=== PATIENT | female | born 1955 | race African-American/Black ===

== ENCOUNTER 2017-03-07 09:14 | Emergency (ER) | payer OTHER ==
[2017-03-07 09:25] VITALS: TEMP 98.1; BMI 37.9
[2017-03-07] MEDS ORDERED: KETOROLAC TROMETHAMINE 60 MG/2 ML VIAL IM ONE (10:13)
--- NOTE | 2017-03-07 10:14 | PDOC ---
History of Present Illness - History of Present Illness Initial Comments: 03/07/17 12:23 Patient is a 61 year old female with significant medical hx of HTN who is presenting to the ED with eight days of neck pain, back pain and cold symptoms. The patient complains of right sided neck pain that radiates down her ribs and around to her back; it is aggravated with movement. 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 Patient states that her symptoms relieved with motrin that she was given at work yesterday but returned after several hours. The patient notes that her symptoms began when she developed a cold last week. Her cold symptoms include productive cough with orange sputum production, nasal congestion. She endorses some substernal chest pain that is present with her cough. The patient came to the ED today because she had difficulty working last night due to pain. Denies any fevers, rhinorrhea, nausea, vomiting, diarrhea, and dysuria. Denies sick contacts. <Geneva Wadsworth - Last Filed: 03/07/17 12:22> <Ba Kelly - Last Filed: 03/07/17 12:44> - General Chief Complaint: Shortness of Breath Stated Complaint: UPPER BACK PAIN Time Seen by Provider: 03/07/17 10:04 Past History <Geneva Wadsworth - Last Filed: 03/07/17 12:22> - Past Medical History HTN: Yes - Psycho/Social/Smoking Cessation Hx Anxiety: No Suicidal Ideation: No Smoking History: Never smoked Have you smoked in the past 12 months: No Hx Alcohol Use: No Drug/Substance Use Hx: No Substance Use Type: None <Ba Kelly - Last Filed: 03/07/17 12:44> - Past Medical History Allergies/Adverse Reactions: Allergies Allergy/AdvReac Type Severity Reaction Status Date / Time No Known Allergies Allergy Verified 03/07/17 09:24 Home Medications: Ambulatory Orders NK [No Known Home Medication] 03/07/17 Review of Systems - Review of Systems Comments:: 03/07/17 12:23 CONSTITUTIONAL: No reported: Fever, Diaphoresis, Generalized Weakness, Malaise, Loss of Appetite HEENT: Reported: Nasal Congestion No reported: Rhinorrhea, Throat Pain, Throat Swelling, Difficulty Swallowing, Mouth Swelling, Ear Pain, Eye Pain, Visual Changes CARDIOVASCULAR: Reported: Chest Pain with Cough No reported: Syncope, Palpitations, Irregular Heart Rate, Lightheadedness RESPIRATORY: Reported: Productive Cough No reported: Shortness of Breath, SOB with Exertion, Orthopnea, Wheezing, Stridor, Hemoptysis GASTROINTESTINAL: No reported: Abdominal pain, Abdominal Distension, Nausea, Vomiting, Diarrhea, Constipation, Melena, Hematochezia GENITOURINARY: No reported: Dysuria, Frequency, Urgency, Hesitancy, Flank Pain, Genital Pain MUSCULOSKELETAL: Reported: Neck Pain, Back Pain No reported: Myalgia, Arthralgia SKIN: No reported: Rash, Itching, Pallor HEMEATOLOGIC/IMMUNOLOGIC: No reported: Easy Bleeding, Easy Bruising, Lymphadenopathy, Frequent infections ENDOCRINE: No reported: Unexplained Weight Gain, Unexplained Weight Loss, Heat Intolerance , Cold Intolerance NEUROLOGIC: No reported: Headache, Focal Weakness, Paresthesias, Vertigo, Lightheadedness, Unsteady Gait, Seizure, Mental Status Changes, Incontinence PSYCHIATRIC: No reported: Anxiety, Depression <Geneva Wadsworth - Last Filed: 03/07/17 12:22> *Physical Exam - Vital Signs Last Vital Signs Temp Pulse Resp BP Pulse Ox 98.1 F 66 18 156/78 98 03/07/17 09:18 03/07/17 09:18 03/07/17 09:18 03/07/17 09:18 03/07/17 09:18 - Physical Exam Comments: 03/07/17 12:23 GENERAL: The patient is awake, alert, and fully oriented, Nontoxic - in no acute distress. HEAD: Normocephalic, atraumatic. EYES: extraocular movements intact, sclera anicteric, conjunctiva clear. ENT: Normal voice, Moist mucous membranes. NECK: Normal range of motion, supple LUNGS: Breath sounds equal, clear to auscultation bilaterally. No wheezes, no rhonchi, no rales. HEART: Regular rate and rhythm, without murmur, rub or gallop. ABDOMEN: Soft, nontender, normoactive bowel sounds. No guarding, no rebound.No CVA tenderness MUSCULOSKELETAL: Reproducible trapezius tenderness to the right. EXTREMITIES: Normal range of motion. Trace edema bilaterally. Negative homans sign. No clubbing or cyanosis. No cords, erythema, or tenderness. NEUROLOGICAL: No facial assymetry, Normal speech, PSYCH: Normal mood, normal affect. SKIN: Warm, Dry, normal turgor. <Geneva Wadsworth - Last Filed: 03/07/17 12:22> - Vital Signs Last Vital Signs Temp Pulse Resp BP Pulse Ox 98.1 F 66 18 156/78 98 03/07/17 09:18 03/07/17 09:18 03/07/17 09:18 03/07/17 09:18 03/07/17 09:18 <Ba Kelly - Last Filed: 03/07/17 12:44> Heart Score/ECG Review - ECG Impressions Comment:: 03/07/17 11:05 Twelve-lead EKG was performed and reviewed by me. There is normal sinus rhythm with bradycardia rate of 56 The axis is normal. The intervals are normal. There is normal R wave progression There are no ST or T wave abnormalities. Impression: sinus bradycardia <Ba Kelly - Last Filed: 03/07/17 12:44> ED Treatment Course - RADIOLOGY Radiograph Interpretation: 03/07/17 11:18 Chest X-Ray Impression: Mild cardiomegaly and unfolding of the great vessels. No evidence of heart failure, acute infiltrate or pleural effusion is seen. Clinical correlation is advised. Reported By: Ramo Long MD - Medications Given in the ED: ED Medications Discontinued Medications Generic Name Dose Route Start Last Admin Trade Name Desirae PRN Reason Stop Dose Admin Ketorolac Tromethamine 60 mg 03/07/17 10:13 03/07/17 10:55 Toradol Injection - IM 03/07/17 10:14 60 mg ONCE ONE Administration <Geneva Wadsworth - Last Filed: 03/07/17 12:22> - RADIOLOGY Radiology Studies Ordered: Category Date Time Status CHEST PA & LAT [RAD] Stat Radiology 03/07/17 10:13 Ordered <Ba Kelly - Last Filed: 03/07/17 12:44> Medical Decision Making - Medical Decision Making 03/07/17 10:44 61y F hx of HTN presents with R upper back pain that is worse with movement and palpation, associated with nasal congestion and cough x 8 days, improved with motrin w/o cp, jordan, hemoptysis, increased leg swelling. on exam the pt has reproducible tenderness in the R trapezius, lungs clear. suspect common cold with msk pain PE unlikely basedon constellation of sypmtoms will obtain ekg will ck cxr to r/o pna 03/07/17 12:06 cxr neg for pna will give tylenol an dc the pt to fu with pmd return precautions were discussed I discussed the physical exam findings, ancillary test results and final diagnoses with the patient. I answered all of the patient's questions. The patient was satisfied with the care received and felt comfortable with the discharge plan and treatment plan. The patient will call their primary care physician within 24 hours to arrange follow-up and will return to the Emergency Department with any new, persistent or worsening symptoms. <Ba Kelly - Last Filed: 03/07/17 12:44> *DC/Admit/Observation/Transfer - Attestations Scribe Attestion: 03/07/17 12:23 Documentation prepared by Geneva Wadsworth, acting as senior medical writer for Ba Kelly MD. <Geneva Wadsworth - Last Filed: 03/07/17 12:22> - Discharge Dispostion Admit: No <Ba Kelly - Last Filed: 03/07/17 12:44> Diagnosis at time of Disposition: URI (upper respiratory infection) Qualifiers: URI type: unspecified viral URI Qualified Code(s): J06.9 - Acute upper respiratory infection, unspecified Shoulder pain, left Qualifiers: Chronicity: acute Qualified Code(s): M25.512 - Pain in left shoulder - Discharge Dispostion Disposition: HOME Condition at time of disposition: Improved - Referrals Referrals: Marissa Sheriff MD [Primary Care Provider] - - Patient Instructions Printed Discharge Instructions: DI for Viral Upper Respiratory Infection -- Adult Additional Instructions: Return to the emergency department immediately with ANY new, persistent or worsening symptoms. Take ibuprofen/tylenol as needed for your shoulder/back pain. Use a heating pad on it Make sure you are staying well hydrated. You MUST call and follow up with your doctor in 2-3 days for further evaluation of your symptoms. Results were discussed with you. Please make sure your doctor reviews the results of your emergency evaluation.
[2017-03-07] MEDS ORDERED: KETOROLAC TROMETHAMINE 60 MG/2 ML VIAL ONE (10:49)
[2017-03-07] MEDS ORDERED: ACETAMINOPHEN 325 MG TABLET (FP) PO ONE (12:00)
[2017-03-07] MEDS ORDERED: ACETAMINOPHEN 325 MG TABLET (FP) ONE (12:12)
--- NOTE | 2017-03-07 12:31 | EKG ---
Test Reason : Blood Pressure : / mmHG Vent. Rate : 056 BPM Atrial Rate : 056 BPM P-R Int : 142 ms QRS Dur : 088 ms QT Int : 438 ms P-R-T Axes : 060 016 022 degrees QTc Int : 422 ms SINUS BRADYCARDIA OTHERWISE NORMAL ECG WHEN COMPARED WITH ECG OF 02-AUG-2015 01:31, NO SIGNIFICANT CHANGE WAS FOUND BASELINE ARTIFACT Confirmed by KIA OWEN MD ([id number]) on 03/07/2017 12:31:21 PM Referred By: Confirmed By:KIA OWEN MD
[2017-03-07 13:16] VITALS: BP 165/84; PULSE 57
== END 2017-03-07 13:12 | disposition home or self-care (01) ==
LOC: JER 09:14
PROC: 3E0233Z Introduction of Anti-inflammatory into Muscle, Percutaneous Approach (ICD-10-PCS; principal; 2017-03-07)
DX: J06.9 Acute upper respiratory infection, unspecified (principal); M25.512 Pain in left shoulder; I10 Essential (primary) hypertension
CPT/HCPCS: 71020-TC; 93005; 93010; 99282-25

== ENCOUNTER 2019-11-13 03:05 | Emergency (ER) | payer OTHER ==
[2019-11-13 03:17] VITALS: TEMP 98.2; BMI 37.9
--- NOTE | 2019-11-13 03:20 | PDOC ---
Attending Attestation - Resident Resident Name: YusufYoel - ED Attending Attestation I have performed the following: I have examined & evaluated the patient, The case was reviewed & discussed with the resident, I agree w/resident's findings & plan - HPI HPI: 11/13/19 03:18 see resident hpi - Physicial Exam PE: 11/13/19 03:18 agree with resident exam - Medical Decision Making 11/13/19 03:18 64-year-old female with sudden onset of midepigastric pain, patient told earlier at her job that she was hypertensive with a systolic blood pressure of 190 Last meal was 12 hours ago EKG shows no acute ST segment changes Plan for CTA of the chest abdomen and pelvis to rule out aortic dissection Labs including troponin and LFTs Antacids and reevaluation Due to radiation to the chest will likely keep for observation pending results
--- NOTE | 2019-11-13 03:28 | PDOC ---
History of Present Illness - General Chief Complaint: Chest Pain Stated Complaint: CHEST PAIN Time Seen by Provider: 11/13/19 03:08 - History of Present Illness Initial Comments: 11/13/19 03:18 64f with pmh of htn presents to the ED with sudden onset chest pain while sitting at the computer at work. She never had chest pain like this before. The pain is 8-9/10 starting in the epigastric area and radiating through toward the back. No epigastric burning. Last meal was around 3pm after which she went to sleep before going to work tonight. Pressure much higher than usual. Denies n/v/d headache or sob. Past History - Past Medical History Allergies/Adverse Reactions: Allergies Allergy/AdvReac Type Severity Reaction Status Date / Time No Known Allergies Allergy Verified 03/07/17 09:24 Home Medications: Ambulatory Orders NK [No Known Home Medication] 03/07/17 HTN: Yes - Psycho Social/Smoking Cessation Hx Smoking History: Never smoked Have you smoked in the past 12 months: No Information on smoking cessation initiated: No Hx Alcohol Use: No Drug/Substance Use Hx: No Substance Use Type: None Review of Systems - Review of Systems Able to Perform ROS?: Yes Is the patient limited [place] proficient: No Constitutional: No: Symptoms Reported HEENTM: No: Symptoms Reported Respiratory: No: Symptoms reported Cardiac (ROS): Yes: See HPI ABD/GI: Yes: See HPI : No: Symptoms Reported Musculoskeletal: No: Symptoms Reported Integumentary: No: Symptoms Reported Neurological: No: Symptoms reported All Other Systems: Reviewed and Negative *Physical Exam - Vital Signs Last Vital Signs Temp Pulse Resp BP Pulse Ox 98.2 F 72 22 H 182/74 H 100 11/13/19 03:14 11/13/19 03:14 11/13/19 03:14 11/13/19 03:14 11/13/19 03:14 - Physical Exam General Appearance: Yes: Nourished, Appropriately Dressed. No: Apparent Distress HEENT: positive: EOMI, ROLA, Normal ENT Inspection Respiratory/Chest: positive: Lungs Clear, Normal Breath Sounds. negative: Chest Tender, Respiratory Distress Cardiovascular: positive: Regular Rhythm, Regular Rate, S1, S2 Gastrointestinal/Abdominal: positive: Normal Bowel Sounds, Tender (epigastric), Soft, Protuberent Musculoskeletal: positive: Normal Inspection. negative: CVA Tenderness Extremity: positive: Normal Capillary Refill, Normal Inspection, Normal Range of Motion Neurologic: positive: Fully Oriented, Alert, Normal Mood/Affect ED Treatment Course - LABORATORY CBC & Chemistry Diagram: 11/13/19 03:36 11/13/19 03:36 - ADDITIONAL ORDERS Additional order review: Laboratory Results 11/13/19 11/13/19 11/13/19 03:45 03:36 03:36 Sodium 139 Potassium 3.8 Chloride 104 Carbon Dioxide 28 Anion Gap 6 L BUN 15.1 Creatinine 0.7 Est GFR (CKD-EPI)AfAm 106.87 Est GFR (CKD-EPI)NonAf 92.21 Random Glucose 102 Calcium 9.4 Total Bilirubin 0.3 AST 14 L ALT 21 Alkaline Phosphatase 78 Troponin I < 0.02 Total Protein 8.0 Albumin 3.9 Urine Color Yellow Urine Appearance Clear Urine pH 7.5 D Ur Specific [place] 1.009 L Urine Protein Negative Urine Glucose (UA) Negative Urine Ketones Negative Urine Blood Negative Urine Nitrite Negative Urine Bilirubin Negative Urine Urobilinogen 0.2 Ur Leukocyte Esterase Negative 11/13/19 03:36 RBC 4.56 MCV 90.0 MCHC 33.1 RDW 14.1 MPV 10.3 Neutrophils % 38.4 L D Lymphocytes % 50.5 H D Monocytes % 7.4 Eosinophils % 2.4 Basophils % 1.3 - RADIOLOGY Radiology Studies Ordered: Category Date Time Status ABDOMEN/PELVIS CTA W/WO CONTR [CT] Stat CT Scan 11/13/19 03:32 Taken CHEST CTA [CT] Stat CT Scan 11/13/19 03:32 Taken Medical Decision Making - Medical Decision Making 11/13/19 03:30 64F with epigastric back pain tearing through back as well as high blood pressure. Will rule out ACS and aortic dissection with CTA 11/13/19 06:46 CTA read: IMPRESSION: No acute pathology in the chest, abdomen or pelvis. Possible gallbladder sludge versus milk of calcium without gallbladder inflammation. Ok to dc with outpatient surgical follow up. Discharge - Discharge Information Problems reviewed: Yes Clinical Impression/Diagnosis: Epigastric abdominal pain Condition: Improved Disposition: HOME - Admission No - Follow up/Referral Referrals: Nadira Wilkinson MD [Staff Physician] - Heriberto De La Cruz MD [Staff Physician] - Soren Ma MD [Staff Physician] - Andrea Valdivia MD [Staff Physician] - - Patient Discharge Instructions Patient Printed Discharge Instructions: DI for Epigastric Pain Additional Instructions: Follow up with your primary care physician within the next 3-4 days. Also follow up with general surgery and gastroenterology for possible biliary colic. - Post Discharge Activity
[2019-11-13 03:53] LABS: BASO % 1.3 % (0-2.0); EOS % 2.4 % (0-4.5); HEMATOCRIT 41.1 % (32.4-45.2); HEMOGLOBIN 13.6 GM/dL (10.7-15.3); LYMPH % 50.5 % (8-40); MCH 29.8 pg (25.7-33.7); MCHC 33.1 g/dl (32.0-36.0); MEAN PLT VOLUME 10.3 fl (7.5-11.1); MONO % 7.4 % (3.8-10.2); NEUT % 38.4 % (42.8-82.8); PLATELET COUNT 226 K/MM3 (134-434); RBC 4.56 M/mm3 (3.60-5.2); RDW 14.1 % (11.6-15.6); WHITE BLOOD COUNT 6.4 K/mm3 (4.0-10.0)
[2019-11-13 03:53] LABS: PH,URINE 7.5 (5.0-8.0); URINE APPEARANCE CLEAR; URINE BILIRUBIN NEGATIVE (NEGATIVE); URINE COLOR YELLOW; URINE GLUCOSE (UA) NEGATIVE (NEGATIVE); URINE KETONE NEGATIVE (NEGATIVE); URINE LEUK ESTERASE NEGATIVE (NEGATIVE); URINE NITRITE NEGATIVE (NEGATIVE); URINE PROTEIN NEGATIVE (NEGATIVE); URINE UROBILINOGEN 0.2 mg/dL (0.2-1.0)
[2019-11-13 04:25] LABS: ALBUMIN 3.9 g/dl (3.4-5.0); BILIRUBIN,TOTAL 0.3 mg/dL (0.2-1); BLOOD UREA NITROGEN 15.1 mg/dL (7-18); CALCIUM 9.4 mg/dL (8.5-10.1); CREATININE 0.7 mg/dL (0.55-1.3); POTASSIUM 3.8 mmol/L (3.5-5.1)
[2019-11-13 07:00] VITALS: BP 152/76; PULSE 78
== END 2019-11-13 06:59 | disposition home or self-care (01) ==
LOC: JER 03:05
DX: R10.13 Epigastric pain (principal); I10 Essential (primary) hypertension
CPT/HCPCS: 36415; 71275-TC; 74174-TC; 80053; 81003; 84484; 85025; 87086; 99283-25

== ENCOUNTER 2019-12-06 23:13 | Emergency (ER) | payer OTHER ==
[2019-12-06] MEDS ORDERED: ACETAMINOPHEN/CAFFEINE/BUTALBITAL 1 TAB PO ONE (23:29)
[2019-12-06 23:48] VITALS: TEMP 98.5; BMI 34.8
[2019-12-06] MEDS ORDERED: ACETAMINOPHEN/CAFFEINE/BUTALBITAL 1 TAB ONE (23:51)
[2019-12-07 00:09] LABS: BASO % 0.8 % (0-2.0); EOS % 1.7 % (0-4.5); HEMATOCRIT 39.1 % (32.4-45.2); HEMOGLOBIN 12.8 GM/dL (10.7-15.3); LYMPH % 47.9 % (8-40); MCH 29.4 pg (25.7-33.7); MCHC 32.7 g/dl (32.0-36.0); MEAN CELL VOLUME 89.9 fl (80-96); MEAN PLT VOLUME 9.8 fl (7.5-11.1); MONO % 14.9 % (3.8-10.2); NEUT % 34.7 % (42.8-82.8); PLATELET COUNT 189 K/MM3 (134-434); RBC 4.35 M/mm3 (3.60-5.2); RDW 14.2 % (11.6-15.6); WHITE BLOOD COUNT 3.8 K/mm3 (4.0-10.0)
--- NOTE | 2019-12-07 00:24 | PDOC ---
Documentation entered by Saida Louise SCRIBE, acting as scribe for Kandi Mathias MD. Kandi Mathias MD: This documentation has been prepared by the scribeDani Lincy, SCRIBE, under my direction and personally reviewed by me in its entirety. I confirm that the documentation accurately reflects all work, treatment, procedures, and medical decision making performed by me. History of Present Illness - General Stated Complaint: WHEEZING, CHEST TIGHTNESS Time Seen by Provider: 12/06/19 23:20 History Source: Patient Exam Limitations: No Limitations - History of Present Illness Initial Comments: 12/06/19 23:43 The patient is a 64-year-old female with a past medical history significant for HTN who presents to the emergency department with wheezing and a headache. The patient reports shes been having episodes of wheezing, to the extent, shes unable to sleep secondary to the noise. Denies history of asthma. The patient reports associated symptoms, left-sided headache and chills. Denies fever, chills, ear pain, vision changes, diarrhea, or constipation. Denies known sick contact. Past History - Past Medical History Allergies/Adverse Reactions: Allergies Allergy/AdvReac Type Severity Reaction Status Date / Time No Known Allergies Allergy Verified 12/06/19 23:49 Home Medications: Ambulatory Orders NK [No Known Home Medication] 03/07/17 COPD: No HTN: Yes - Immunization History TDAP Vaccination: Yes Immunization Up to Date: Yes - Psycho Social/Smoking Cessation Hx Smoking History: Never smoked Have you smoked in the past 12 months: No Hx Alcohol Use: No Drug/Substance Use Hx: No Substance Use Type: None Review of Systems - Review of Systems Able to Perform ROS?: Yes Comments:: 12/06/19 23:44 GENERAL/CONSTITUTIONAL: +chills. No fever, No weakness. HEAD, EYES, EARS, NOSE AND THROAT: No change in vision. No ear pain or discharge. No sore throat. CARDIOVASCULAR: No chest pain or shortness of breath. RESPIRATORY: +wheezing. No cough or hemoptysis. GASTROINTESTINAL: No nausea, vomiting, diarrhea or constipation. GENITOURINARY: No dysuria, frequency, or change in urination. MUSCULOSKELETAL: No joint or muscle swelling or pain. No neck or back pain. SKIN: No rash NEUROLOGIC: +headache. No vertigo, loss of consciousness, or change in strength/ sensation. ENDOCRINE: No increased thirst. No abnormal weight change. HEMATOLOGIC/LYMPHATIC: No anemia, easy bleeding, or history of blood clots. ALLERGIC/IMMUNOLOGIC: No hives or skin allergy. *Physical Exam - Vital Signs Last Vital Signs Temp Pulse Resp BP Pulse Ox 98.5 F 68 18 152/82 5 L 12/06/19 23:45 12/06/19 23:45 12/06/19 23:45 12/06/19 23:45 12/06/19 23:45 - Physical Exam 12/06/19 23:47 GENERAL: Awake, alert, and fully oriented, in no acute distress HEAD: +left partial tenderness, No signs of trauma EYES: PERRLA, EOMI, sclera anicteric, conjunctiva clear ENT: TMs normal, Cerumen right ear. nares patent, oropharynx clear without exudates. Moist mucosa NECK: Normal ROM, supple, no lymphadenopathy, JVD, or masses LUNGS: Breath sounds equal, clear to auscultation bilaterally. No wheezes, and no crackles HEART: Regular rate and rhythm, normal S1 and S2, no murmurs, rubs or gallops ABDOMEN: Soft, nontender, normoactive bowel sounds. No guarding, no rebound. No masses EXTREMITIES: Normal range of motion, no edema. No clubbing or cyanosis. No cords, erythema, or tenderness NEUROLOGICAL: Cranial nerves II through XII grossly intact. Normal speech, normal gait SKIN: Warm, Dry, normal turgor, no rashes or lesions noted. Heart Score/ECG Review - ECG Intrepretation Rhythm: Regular Rhythm - [place]: Normal - P and [place] Prominent R with upright T in V1 (true posterior [place]): No Delta Wave(s) Present: No WPW: No - ST and T Early Repolarization: No Non Specific ST-T Wave changes: No Flattened T Waves: No Prolonged Q-T Interval: No - ECG Impressions Normal ECG: Yes Non-specific ST Elevation: No Ischemic Changes: No Bradycardia: No Torsades gardenia Pointes: No WPW: No ED Treatment Course - LABORATORY CBC & Chemistry Diagram: 12/06/19 23:55 12/06/19 23:55 - ADDITIONAL ORDERS Additional order review: 12/06/19 23:55 RBC 4.35 MCV 89.9 MCHC 32.7 RDW 14.2 MPV 9.8 Neutrophils % 34.7 L Lymphocytes % 47.9 H Monocytes % 14.9 H D Eosinophils % 1.7 Basophils % 0.8 - RADIOLOGY Radiology Studies Ordered: Category Date Time Status HEAD CT WITHOUT CONTRAST [CT] Stat CT Scan 12/07/19 00:[address] W/O CONTRAST [CT] Stat CT Scan 12/07/19 00:01 Ordered CHEST PA & LAT [RAD] Stat Radiology 12/07/19 00:20 Ordered - Medications Given in the ED: ED Medications Discontinued Medications Generic Name Dose Route Start Last Admin Trade Name Desirae PRN Reason Stop Dose Admin Acetaminophen/Butalbital/Caffeine 2 tablet 12/06/19 23:29 12/06/19 23:58 Fioricet - PO 12/06/19 23:30 2 tablet ONCE ONE Administration Medical Decision Making - Medical Decision Making 12/07/19 01:51 Patient Name: BETTY LANDIN THIS IS A PRELIMINARY REPORT FROM [facility] DATE OF SERVICE: 2019-12-07 00:12:06 IMAGES: [id number] EXAM: CT Sinus without IV contrast HISTORY: 64-year-old female, evaluate for sinusitis COMPARISON: No available comparison. TECHNIQUE: Axial images obtained through the sinuses. Sagittal and coronal reformatting was performed. Radiation Dose Reduction: This CT exam was performed using one or more of the following dose reduction techniques: automated exposure control, adjustment of the mA and/or kV according to patient size, use of iterative reconstruction technique. Radiation Dose: Based on a 16 cm phantom, the estimated radiation dose CTDIvol mGy for each series in this exam is 32.2. The estimated cumulative dose (DLP mGy-cm) is 620.1. FINDINGS: Nasopharynx: Unremarkable. Oropharynx: Unremarkable. Prevertebral soft tissues: Normal contour and thickness. Nasal Fossa: Unremarkable. No septal perforation or deviation. No wilbert bullosa or paradoxical turbinates are identified. Frontal Sinuses: Unremarkable. Frontal recesses are patent. No anomolous frontal air cells. Ethmoid Sinuses: Unremarkable. Fovea ethmoidalis and lamina papyracea are symmetric and intact. Maxillary Sinuses: Unremarkable. Osteomeatal complex is patent bilaterally. Sphenoid Sinuses: Unremarkable. Spenoethmoidal recess are patent. Orbits: Unremarkable. Visualized skull base: Unremarkable. Lymphadenopathy: None. IMPRESSION: Unremarkable CT of the paranasal sinuses. THIS DOCUMENT HAS BEEN ELECTRONICALLY SIGNED 12/07/19 01:52 Patient Name: BETTY LANDIN THIS IS A PRELIMINARY REPORT FROM [facility] DATE OF SERVICE: 2019-12-07 00:10:33 IMAGES: [id number] EXAM: CT HEAD WITHOUT CONTRAST HISTORY: 64-year-old female, headache, left-sided shunt, sinus pathology COMPARISON: No available comparison exams. TECHNIQUE: Axial non-contrast images of the head obtained from the skull base to the vertex. FINDINGS: Parenchyma: No acute intracranial hemorrhage or mass effect. No hypodensity. Extra-axial collection: No extra-axial fluid collection or hemorrhage. Ventricles and cisterns: Normal and symmetric in size and shape. No SAH. Paranasal sinuses: Visualized portions are unremarkable. Mastoid air cells: Unremarkable. Orbits: Visualized portions are unremarkable. Calvarium: No acute fracture. IMPRESSION: No evidence of acute intracranial abnormality. 12/07/19 01:52 Pt is feeling better with fioricet; labs normal; Pt will be given a dose of diovan tonight. She will follow with PMD and she will bulk picker her meds at the pharmacy tomorrow. Stable for d/c home Discharge - Discharge Information Problems reviewed: Yes Clinical Impression/Diagnosis: Headache, Wheezing, HTN (hypertension) Condition: Improved Disposition: HOME - Follow up/Referral Referrals: Dakotah Hargrove MD [Primary Care Provider] - - Patient Discharge Instructions - Post Discharge Activity Work/Back to School Note: Back to Work
[2019-12-07 00:36] LABS: ALBUMIN 3.4 g/dl (3.4-5.0); BILIRUBIN,TOTAL 0.2 mg/dL (0.2-1); BLOOD UREA NITROGEN 14.5 mg/dL (7-18); CREATININE 0.8 mg/dL (0.55-1.3); POTASSIUM 4.5 mmol/L (3.5-5.1); TOT PROT 7.3 g/dl (6.4-8.2)
[2019-12-07] MEDS ORDERED: VALSARTAN 40 MG TABLET (FP) PO ONE (01:44)
[2019-12-07 03:03] VITALS: BP 156/84; PULSE 62
--- NOTE | 2019-12-09 12:51 | EKG ---
Test Reason : Blood Pressure : / mmHG Vent. Rate : 065 BPM Atrial Rate : 065 BPM P-R Int : 136 ms QRS Dur : 084 ms QT Int : 406 ms P-R-T Axes : 062 015 025 degrees QTc Int : 422 ms NORMAL SINUS RHYTHM WITH SINUS ARRHYTHMIA NORMAL ECG WHEN COMPARED WITH ECG OF 07-MAR-2017 10:52, NO SIGNIFICANT CHANGE WAS FOUND Confirmed by DINESH ISAAC MD ([id number]) on 12/09/2019 12:50:54 PM Referred By: Confirmed By:DINESH ISAAC MD
== END 2019-12-07 02:10 | disposition home or self-care (01) ==
LOC: JER 23:13
DX: R06.2 Wheezing (principal); R51 Headache; I10 Essential (primary) hypertension
CPT/HCPCS: 36415; 70450-TC; 70486-TC; 71046-TC-FY; 80053; 85025; 93005; 93010; 99283-25

== ENCOUNTER 2022-10-10 05:34 | Day surgery (SDC) | payer OTHER ==
[2022-10-10 10:05] VITALS: BMI 35.4
[2022-10-10] MEDS ORDERED: ONDANSETRON 4 MG/2 ML VIAL IVPUSH PRN ×2 (11:39→11:40)
[2022-10-10] MEDS ORDERED: ACETAMINOPHEN 325 MG TABLET (FP) PO PRN (11:39)
[2022-10-10] MEDS ORDERED: IBUPROFEN 400 MG TABLET (FP) PO PRN (11:39)
[2022-10-10] MEDS ORDERED: PROMETHAZINE HCL 25 MG/1 ML VIAL IVPUSH PRN (11:40)
[2022-10-10] MEDS ORDERED: oxyCODONE HCL 5 MG TABLET PO PRN (11:40)
[2022-10-10] MEDS ORDERED: LACTATED RINGERS SOLUTION 1,000 ML IV SCH (11:45)
[2022-10-10] MEDS ORDERED: FENTANYL CITRATE/PF 50 MCG/ML VIAL ONE ×2 (12:02→12:27)
[2022-10-10] MEDS ORDERED: PROPOFOL 20 ML ONE (12:02)
[2022-10-10] MEDS ORDERED: MIDAZOLAM HCL 2 MG/2 ML SINGLE DOSE VIAL ONE (12:02)
[2022-10-10] MEDS ORDERED: LIDOCAINE HCL/PF 2% SDV 5ML VIAL ONE (12:03)
[2022-10-10] MEDS ORDERED: GLYCOPYRROLATE 0.2 MG/1 ML VIAL ONE (12:03)
[2022-10-10] MEDS ORDERED: DEXAMETHASONE SOD PHOSPHATE 4 MG/1 ML VIAL ONE (12:26)
[2022-10-10] MEDS ORDERED: METOPROLOL TARTRATE 5 MG/5 ML VIAL ONE (12:26)
[2022-10-10] MEDS ORDERED: ONDANSETRON 4 MG/2 ML VIAL ONE (12:26)
[2022-10-10] MEDS ORDERED: KETOROLAC TROMETHAMINE 30 MG/1 ML VIAL ONE (12:28)
[2022-10-10 14:36] VITALS: RESP 18; TEMP 97.8
[2022-10-10 15:23] VITALS: BP 128/85; PULSE 54
== END 2022-10-10 15:05 | disposition home or self-care (01) ==
LOC: JASU-SURG 05:34
PROVIDERS: ATTEND Obstetrics & Gynecology
PROC: 0UB98ZX Excision of Uterus, Via Natural or Artificial Opening Endoscopic, Diagnostic (ICD-10-PCS; principal; 2022-10-10 11:30)
PROC: 0UDB7ZX Extraction of Endometrium, Via Natural or Artificial Opening, Diagnostic (ICD-10-PCS; 2022-10-10 11:30)
DX: N84.0 Polyp of corpus uteri (principal)
CPT/HCPCS: 86850; 86900; 86901; 88305-TC; 94760

== ENCOUNTER 2024-03-27 12:06 | Emergency (ER) | payer OTHER ==
[2024-03-27 12:19] VITALS: BP 153/67; PULSE 98; RESP 16; TEMP 98; BMI 40.3
[2024-03-27] MEDS: SODIUM CHLORIDE 0.9% 500 ML INFUS.BAG IV ONE (13:11)
[2024-03-27 13:18] LABS: BASO % 0.8 % (0-2.0); EOS % 4.3 % (0-4.5); HEMATOCRIT 41.3 % (32.4-45.2); LYMPH % 32.3 % (8-40); MCH 29.5 pg (25.7-33.7); MCHC 33.8 g/dl (32.0-36.0); MEAN CELL VOLUME 87.2 fl (80-96); MEAN PLT VOLUME 8.9 fl (7.5-11.1); MONO % 14.8 % (3.8-10.2); NEUT % 47.8 % (42.8-82.8); PLATELET COUNT 246 10^3/uL (134-434); RBC 4.74 M/mm3 (3.60-5.2); RDW 13.9 % (11.6-15.6); WHITE BLOOD COUNT 4.8 K/mm3 (4.0-10.0)
[2024-03-27 13:43] LABS: CALCIUM 9.5 mg/dL (8.5-10.1)
[2024-03-27 13:45] LABS: ALBUMIN 3.4 g/dl (3.4-5.0); BLOOD UREA NITROGEN 8.6 mg/dL (7-18)
[2024-03-27 13:48] LABS: CREATININE 0.8 mg/dL (0.55-1.3)
[2024-03-27 13:49] LABS: BILIRUBIN,TOTAL 0.3 mg/dL (0.2-1); TOT PROT 7.7 g/dl (6.4-8.2)
[2024-03-27 13:52] LABS: N-TERMINAL BNP 63.3 pg/ml (5-125)
== END 2024-03-27 15:37 | disposition home or self-care (01) ==
LOC: JER 12:06
DX: R05.1 Acute cough (principal); R07.89 Other chest pain; R06.02 Shortness of breath; R09.81 Nasal congestion; Z20.822 Contact with and (suspected) exposure to COVID-19
CPT/HCPCS: 0241U-QW; 36415; 71046-TC-FY; 80053; 83880; 84484; 85025; 93005; 93010; 99285-25